=== PATIENT | female | born 1980 ===

== ENCOUNTER 2019-02-18 09:47 | Outpatient (CLI) | payer OTHER ==
--- NOTE | 2019-02-18 12:01 | MRI ---
MRI RIGHT KNEE: 02/18/2019 PROVIDED CLINICAL HISTORY: Right knee injury. COMPARISON: None. FINDINGS: Changes of ACL reconstruction are demonstrated. There is anterior positioning of the tibial interfer ence screw with respect to its optimal location. There is posterior buckling of the ACL graft, as we ll as circumscribed intragraft signal alteration, likely reflecting changes of graft impingement. Th ere is no evidence for mass producing arthrofibrosis. The posterior cruciate ligament, medial collateral ligament, lateral collateral ligamentous complex, and extensor mechanism appear intact. The posterior horn of the medial meniscus is absent, as it approaches the meniscal root. The lateral meniscus appears normal. There is linear signal alteration present, involving the medial patellar facet cartilage, likely refl ecting superficial, nondisplaced articular cartilage delamination. Articular cartilage appears other mae preserved. There is a small knee joint effusion. Fluid signal intensity at the posterior aspect of the knee, la terally, is likely on the basis of fluid decompressed from the knee joint through the popliteal hiatu s. Regional marrow and muscular signal, unaffected by metallic susceptibility artifact, appears norm al. IMPRESSION: 1. Changes of anterior cruciate ligament reconstruction with findings suggesting graft impingement, as described above. 2. Absence of posterior horn medial meniscal tissue, which could reflect sequela of prior partial me niscectomy. Meniscal tear cannot be excluded. Correlate with surgical history. 3. Probable superficial, nondisplaced, delaminating articular cartilage injury involving the medial patellar facet. 4. Small knee joint effusion. POS: [facility]
== END 2019-02-18 09:48 | disposition home or self-care (01) ==
LOC: BICMRI 09:47
PROVIDERS: ATTEND Family Medicine
DX: S89.91XD Unspecified injury of right lower leg, subsequent encounter (principal); Z98.890 Other specified postprocedural states; M25.461 Effusion, right knee

== ENCOUNTER 2019-02-19 09:10 | Outpatient (CLI) | payer OTHER ==
--- NOTE | 2019-02-19 16:26 | MMO ---
Bilateral MAMMO Bilat Screen [facility]. CLINICAL HISTORY: Patient is 38 years old and is seen for screening. The patient has the following family history of breast cancer: mother and maternal grandmother. The patient has no personal history of cancer. The patient has a history of needle biopsy at age 24 - benign. VIEWS: The views performed were: bilateral craniocaudal and bilateral mediolateral oblique. This study has been interpreted with the assistance of computer-aided detection. MAMMOGRAM FINDINGS: The breasts are almost entirely fat. There are no suspicious masses, suspicious calcifications, or new areas of architectural distortion. IMPRESSION: THERE IS NO MAMMOGRAPHIC EVIDENCE OF MALIGNANCY. A ROUTINE FOLLOW-UP MAMMOGRAM IN 1 YEAR IS RECOMMENDED. ACR BI-RADS Category 1 - Negative MAMMOGRAPHY NOTE: 1. A negative mammogram report should not delay a biopsy if a dominant of clinically suspicious mass is present. 2. Approximately 10% to 15% of breast cancers are not detected by mammography. 3. Adenosis and dense breasts may obscure an underlying neoplasm.
== END 2019-02-19 09:11 | disposition home or self-care (01) ==
LOC: SCSMAMMO 09:10
PROVIDERS: ATTEND Family Medicine
DX: Z12.31 Encounter for screening mammogram for malignant neoplasm of breast (principal)
CPT/HCPCS: 77067